=== PATIENT | male | born 1940 | race Caucasian/White ===

== ENCOUNTER 2017-10-23 12:20 | Emergency (ER) | payer OTHER, MEDICARE ==
[2017-10-23 12:53] VITALS: BP 150/94; PULSE 89; TEMP 98.2; BMI 26.3
[2017-10-23] MEDS ORDERED: IBUPROFEN 600 MG TABLET (FP) PO ONE ×2 (14:03→14:43)
--- NOTE | 2017-10-23 14:03 | PDOC ---
History of Present Illness - General Chief Complaint: Injury Stated Complaint: L ARM LACERATION Time Seen by Provider: 10/23/17 12:27 - History of Present Illness Initial Comments: 10/23/17 14:15 Mr Diamond is a 77 yo M who presents to the ER with a complaint of left forearm laceration. Patient states he was removing a tree limb on his property, and accidentally cut himself with a saw on the left forearm. Patient states his tetanus is current within the last 5 years. Patient denies loss of consciousness, falling, head trauma. Patient drove himself to the emergency department. Patient irrigated the area. PMH denies Past surgical history: Tonsillectomy as a child. Medication: Denies ALLERGIES: No known ALLERGIES Social: Denies alcohol, drug, cigarette use GENERAL/CONSTITUTIONAL: No: fever, chills CARDIOVASCULAR: No: chest pain, lightheadedness RESPIRATORY: No: cough, shortness of breath GASTROINTESTINAL: No: nausea, vomiting, abdominal pain MUSCULOSKELETAL: Yes: forearm laceration No: back pain, neck pain SKIN: Yes: forearm laceration NEUROLOGIC: No: paresthesias, weakness GENERAL: The patient is in no acute distress. HEAD: Normal with no signs of trauma. EYES: PERRLA, EOMI, sclera anicteric, conjunctiva clear. ENT: Ears normal, nares patent, oropharynx clear without exudates. Moist mucous membranes. NECK: Normal range of motion, supple without midline tenderness LUNGS: Breath sounds equal, clear to auscultation bilaterally. HEART:Regular rate and rhythm, normal S1 and S2 without murmur, rub or gallop. ABDOMEN: Soft, nontender, normoactive bowel sounds. EXTREMITIES: Normal range of motion NEUROLOGICAL: Cranial nerves II through XII grossly intact. Normal speech. No focal neurological deficits. MUSCULOSKELETAL: Back non-tender to palpation SKIN: Large deep laceration to the dorsum of the left forearm measures 6 cm Through skin and dermis muscule appears to be in tact Pt is able to range at the wrist, MCP, PIP, DIP with no limitations or weakness Sensation in tact No active bleeding Past History - Past Medical History Allergies/Adverse Reactions: Allergies Allergy/AdvReac Type Severity Reaction Status Date / Time No Known Allergies Allergy Verified 08/30/14 10:23 Home Medications: Ambulatory Orders Acetaminophen W/ Codeine #3 [Tylenol # 3 -] 1 tab PO BID PRN #5 tablet MDD 2 Cephalexin [Keflex] 250 mg PO Q6H #28 capsule 10/23/17 Sulfamethoxazole/Trimethoprim [Bactrim Ds -] 1 tab PO BID #14 tablet 10/23/17 COPD: No - Suicide/Smoking/Psychosocial Hx Smoking History: Never smoked Hx Alcohol Use: No Drug/Substance Use Hx: No Substance Use Type: None *Physical Exam - Vital Signs Last Vital Signs Temp Pulse Resp BP Pulse Ox 98.2 F 89 17 150/94 99 10/23/17 12:21 10/23/17 12:21 10/23/17 12:21 10/23/17 12:21 10/23/17 12:21 Medical Decision Making - Medical Decision Making 10/23/17 14:21 77-year-old [id number] male presented to emergency department status post deep laceration to the left forearm with a saw. Patient denies trauma to any other location. Deep laceration which does not appear to have injured flexor muscle bellies Pt will be seen by Dr. House in the ER for repair Pt tetanus up to date Clinical Impression: laceration, initial presentation 10/23/17 15:50 Xray demonstrates foreign body Pt seen and repaired by Dr House Clinical Impression: laceration, initial presentation Injury due to saw, initial presentation *DC/Admit/Observation/Transfer Diagnosis at time of Disposition: Laceration of forearm, left Qualifiers: Encounter type: initial encounter Qualified Code(s): S51.812A - Laceration without foreign body of left forearm, initial encounter - Discharge Dispostion Disposition: HOME Condition at time of disposition: Stable Admit: No - Prescriptions Prescriptions: Acetaminophen W/ Codeine #3 [Tylenol # 3 -] 1 tab PO BID PRN #5 tablet MDD 2 PRN Reason: Severe Pain Cephalexin [Keflex] 250 mg PO Q6H #28 capsule Sulfamethoxazole/Trimethoprim [Bactrim Ds -] 1 tab PO BID #14 tablet - Referrals Referrals: Samy Donnelly [Primary Care Provider] - Freddy House MD [Staff Physician] - - Patient Instructions Printed Discharge Instructions: DI for Laceration Repair -- Complex Additional Instructions: Mr Diamond Thanks for coming to the ER today I'm so sorry this happened 1. Suture Care for a normal sutured wound: o Don't get wet for 24 hours. o After 24 hours wash with alistair soap and water o Apply bacitracin or any antibiotic ointment after washing. o Change wound dressing when wet or soiled. o A dressing is no longer needed when edge of wound closed (usually 48 hours). EXCEPTION: dressing needed to prevent sutures from catching on clothing. 2. Removal Date: Guidelines for when particular sutures (stitches) should be removed IN 14 DAYS PLEASE MAKE AN APPOINTMENT FOR REMOVAL BY DR HOUSE IN 14 DAYS 3. Removal Delays: Do not miss your appointment for removing stitches. Stitches removed late can leave unnecessary skin greco and occasionally cause scarring. Delays also makes suture removal more difficult. 4. Suture Out Early: If the sutures come out early, call your primary care doctor or come back here for further assessment. 5. Wound Protection: After removal of sutures: o Protect the wound from injury during the following month. o Avoid sports that could re-injure the wound. If a sport is essential, apply tape before playing. o Allow the scab to fall off on its own. Do not try to remove it. 6. Call Your Doctor If: o Looks infected o Fever o Sutures come out early o You become worse - Post Discharge Activity
[2017-10-23] MEDS ORDERED: LIDOCAINE HCL 1%, 10 MG/ML (20ML VIAL) ONE (17:00)
--- NOTE | 2017-10-24 08:05 | OP ---
DATE OF OPERATION: 10/23/2017 ATTENDING SURGEON: Freddy House MD SWITCH CLEANER: There are no assistants. REFERRING PHYSICIAN: The patient said after request for a referring physician was Dr. aHyes. HISTORY: This is a 77-year-old man who suffered an injury from a carpentry saw to the left forearm. He was brought into the [facility] Emergency Room for evaluation and treatment. PAST MEDICAL AND SURGICAL HISTORY: Noncontributory. REVIEW OF SYSTEMS: Negative for any bleeding, coagulopathy, recent fevers or infections, changes in mental status, chest pain, shortness of breath. PHYSICAL EXAMINATION: Head and Neck: Atraumatic. Neck is supple and nontender. Extremities: Warm and well perfused. Neurovascular: Exam to the left hand is entirely intact. There is normal sensation to all distributions of the peripheral nerves. All tendons and muscles are entirely intact. Patient has all normal motor exam and sensory exam. Skin: Exploration of the wound shows an irregular, transverse lesion involving partially devitalized skin for roughly 8 cm. The patient was counseled on all risks, benefits, and alternatives to repair. He understands and agrees to proceed. PROCEDURE: Generous debridement of devitalized skin is required with scissors, 10-blade scalpel. This was entirely subcutaneous. The tissues were able to be mobilized towards one another after copious irrigation. Exploration is performed for a new metallic foreign body. This is not identified. Copious irrigation with over 1 L of normal saline is then performed. The fragment seen on the x-ray appears to be remote from the injury site and unrelated. However, thorough exploration is still performed yielding no foreign body. Closure of the wound is performed loosely leaving areas open for drainage. The closure is performed with a series of interrupted buried deep dermal 4-0 Vicryl suture followed by a running 4-0 nylon suture with several horizontal mattress elements. The wound is dressed with Bacitracin and Xeroform. Patient has been placed on antibiotics. Dressing is applied. Followup appointment is in 1 week. Jasmina [id number] cc: Dr. Hayes
== END 2017-10-23 17:56 | disposition home or self-care (01) ==
LOC: FER 12:20 → SUPCPDRO 12:20 → FER 17:56
PROC: 0JQH0ZZ Repair Left Lower Arm Subcutaneous Tissue and Fascia, Open Approach (ICD-10-PCS; principal; 2017-10-23)
DX: S51.812A Laceration without foreign body of left forearm, initial encounter (principal); W29.8XXA Contact with other powered hand tools and household machinery, initial encounter; Y93.89 Activity, other specified; Y92.410 Unspecified street and highway as the place of occurrence of the external cause
CPT/HCPCS: 12034; 73090-TC-LT-FY; 99282-25

== ENCOUNTER 2021-05-25 04:38 | Day surgery (SDC) | payer OTHER, MEDICARE ==
[2021-05-24 13:37] VITALS: BMI 25.8
[~2021-05-25 04:38] MED LIST: ACETAMINOPHEN 325 MG TABLET (FP) PO PRN
[2021-05-25] MEDS ORDERED: TROPICAMIDE 1% OPHTH SOLN 15 ML BOTTLE ONE (06:39)
[2021-05-25] MEDS ORDERED: CYCLOPENTOLATE HCL 1% OPHTH SOLN 2 ML BOTTLE ONE (06:39)
[2021-05-25] MEDS ORDERED: KETOROLAC TROMETHAMINE 0.5% EYE DROP 1 DROP DROPS ONE (06:39)
[2021-05-25] MEDS ORDERED: OFLOXACIN 0.3% OPHTHALMIC SOLUTION 5 ML BOTTLE ONE (06:39)
[2021-05-25] MEDS ORDERED: PHENYLEPHRINE 2.5% OPTHALMIC DROP BOTTLE ONE (06:40)
[2021-05-25] MEDS: PHENYLEPHRINE 2.5% OPHTH SOLN 15 ML BOTTLE OP SCH ×3 (07:00→07:10)
[2021-05-25] MEDS: CYCLOPENTOLATE HCL 1% OPHTH SOLN 2 ML BOTTLE OP SCH ×3 (07:00→07:10)
[2021-05-25] MEDS: OFLOXACIN 0.3% OPHTHALMIC SOLUTION 5 ML BOTTLE OP SCH ×3 (07:00→07:10)
[2021-05-25] MEDS: TROPICAMIDE 1% OPHTH SOLN 15 ML BOTTLE OP SCH ×3 (07:00→07:10)
[2021-05-25] MEDS: KETOROLAC TROMETHAMINE 0.5% EYE DROP 1 DROP DROPS OP SCH ×3 (07:00→07:10)
[2021-05-25] MEDS ORDERED: EPINEPHrine/PF 1 MG/1 ML (1:1,000) AMPULE ONE (07:13)
[2021-05-25] MEDS ORDERED: VANCOMYCIN 500 MG VIAL (RESTRICTED TO ID ONLY) ONE (07:13)
[2021-05-25] MEDS ORDERED: LIDOCAINE HCL/PF 1% SDV 5ML VIAL ONE (07:13)
[2021-05-25] MEDS ORDERED: TRYPAN BLUE 0.5 ML DISP.SYRIN ONE (07:14)
[2021-05-25] MEDS ORDERED: TETRACAINE 0.5% OPHTH SOLN 2 ML BOTTLE ONE (07:14)
[2021-05-25] MEDS ORDERED: WATER FOR INJ,STERILE 10 ML ONE (07:14)
[2021-05-25] MEDS ORDERED: POVIDONE-IODINE 5% OPHTHALMIC PREP 30 ML SOLUTION ONE (07:14)
[2021-05-25] MEDS ORDERED: SUCCINYLCHOLINE CHLORIDE 200 MG/10 ML SYRINGE ONE (08:02)
[2021-05-25] MEDS ORDERED: MIDAZOLAM HCL 2 MG/2 ML SINGLE DOSE VIAL ONE (08:02)
[2021-05-25] MEDS ORDERED: TETRACAINE 0.5% OPHTH SOLN 2 ML BOTTLE TP ONE (08:10)
[2021-05-25] MEDS ORDERED: LIDOCAINE HCL 1% PRESERVATIVE FREE - 30ML VIAL IO ONE (08:18)
[2021-05-25] MEDS ORDERED: CHONDROITIN SU A/HYALUR SOD 1 KIT IO ONE (08:19)
[2021-05-25] MEDS ORDERED: EPINEPHrine/PF 1 MG/1 ML (1:1,000) AMPULE SQ ONE (08:24)
[2021-05-25 11:44] VITALS: PULSE 50; TEMP 97.5
[2021-05-25 11:46] VITALS: BP 160/80
== END 2021-05-25 11:46 | disposition home or self-care (01) ==
LOC: JASU-SURG 04:38
PROVIDERS: ATTEND Ophthalmology
PROC: 08RK3JZ Replacement of Left Lens with Synthetic Substitute, Percutaneous Approach (ICD-10-PCS; principal; 2021-05-25 08:00)
DX: H26.9 Unspecified cataract (principal)

== ENCOUNTER 2021-06-08 04:21 | Day surgery (SDC) | payer OTHER, MEDICARE ==
[2021-06-06 08:39] VITALS: BMI 25.8
[~2021-06-08 04:21] MED LIST changes: +PHENYLEPHRINE 2.5% OPHTH SOLN 15 ML BOTTLE OP SCH
[2021-06-08] MEDS: PHENYLEPHRINE 2.5% OPTHALMIC DROP BOTTLE ONE ×3 (06:20→06:45)
[2021-06-08] MEDS: OFLOXACIN 0.3% OPHTHALMIC SOLUTION 5 ML BOTTLE OP SCH ×3 (06:20→06:45)
[2021-06-08] MEDS: KETOROLAC TROMETHAMINE 0.5% EYE DROP 1 DROP DROPS OP SCH ×3 (06:20→06:45)
[2021-06-08] MEDS: CYCLOPENTOLATE HCL 1% OPHTH SOLN 2 ML BOTTLE OP SCH ×3 (06:20→06:45)
[2021-06-08] MEDS: TROPICAMIDE 1% OPHTH SOLN 15 ML BOTTLE OP SCH ×3 (06:20→06:45)
[2021-06-08] MEDS ORDERED: OFLOXACIN 0.3% OPHTHALMIC SOLUTION 5 ML BOTTLE ONE (06:26)
[2021-06-08] MEDS ORDERED: KETOROLAC TROMETHAMINE 0.5% EYE DROP 1 DROP DROPS ONE (06:26)
[2021-06-08] MEDS ORDERED: CYCLOPENTOLATE HCL 1% OPHTH SOLN 2 ML BOTTLE ONE (06:26)
[2021-06-08] MEDS ORDERED: TROPICAMIDE 1% OPHTH SOLN 15 ML BOTTLE ONE (06:26)
[2021-06-08] MEDS ORDERED: SUCCINYLCHOLINE CHLORIDE 200 MG/10 ML SYRINGE ONE (07:14)
[2021-06-08] MEDS ORDERED: PROPOFOL 20 ML ONE (07:14)
[2021-06-08] MEDS ORDERED: MIDAZOLAM HCL 2 MG/2 ML SINGLE DOSE VIAL ONE (07:15)
[2021-06-08] MEDS ORDERED: LIDOCAINE HCL/PF 2% SDV 5ML VIAL ONE (07:15)
[2021-06-08] MEDS ORDERED: LIDOCAINE HCL/PF 1% SDV 5ML VIAL ONE (07:46)
[2021-06-08] MEDS ORDERED: ACETYLCHOLINE 1:100 INTRA-OCUL 20 MG/2 ML KIT ONE (07:48)
[2021-06-08] MEDS ORDERED: BSS (NA/CA/MG/K) BALANCED SALT SOLUTION OPHTH SOLN 15 ML BOTTLE ONE (07:48)
[2021-06-08] MEDS ORDERED: VANCOMYCIN 500 MG VIAL (RESTRICTED TO ID ONLY) ONE (07:48)
[2021-06-08] MEDS ORDERED: EPINEPHrine/PF 1 MG/1 ML (1:1,000) AMPULE ONE (07:48)
[2021-06-08] MEDS ORDERED: POVIDONE-IODINE 5% OPHTHALMIC PREP 30 ML SOLUTION ONE (07:49)
[2021-06-08] MEDS ORDERED: TRYPAN BLUE 0.5 ML DISP.SYRIN ONE (07:49)
[2021-06-08] MEDS ORDERED: WATER FOR INJ,STERILE 10 ML ONE (07:50)
[2021-06-08] MEDS ORDERED: TETRACAINE 0.5% OPHTH SOLN 2 ML BOTTLE ONE (07:50)
[2021-06-08] MEDS ORDERED: TETRACAINE 0.5% OPHTH SOLN 2 ML BOTTLE OD ONE (08:15)
[2021-06-08] MEDS ORDERED: POVIDONE-IODINE 5% OPHTHALMIC PREP 30 ML SOLUTION OD ONE (08:16)
[2021-06-08] MEDS ORDERED: LIDOCAINE HCL 1% PRESERVATIVE FREE - 30ML VIAL IO ONE (08:21)
[2021-06-08] MEDS ORDERED: BSS (NA/CA/MG/K) BALANCED SALT SOLUTION OPHTH SOLN 15 ML BOTTLE IO ONE (08:25)
[2021-06-08] MEDS ORDERED: CHONDROITIN SU A/HYALUR SOD 1 KIT IO ONE (08:27)
[2021-06-08] MEDS ORDERED: EPINEPHrine/PF 1 MG/1 ML (1:1,000) AMPULE IO ONE (08:30)
[2021-06-08] MEDS ORDERED: CHONDROITIN SU A/HYALUR SOD 1 KIT ONE (10:05)
[2021-06-08 10:49] VITALS: PULSE 56
[2021-06-08 11:07] VITALS: BP 120/70; TEMP 97.6
== END 2021-06-08 11:08 | disposition home or self-care (01) ==
LOC: JASU-SURG 04:21
PROVIDERS: ATTEND Ophthalmology
PROC: 08RJ3JZ Replacement of Right Lens with Synthetic Substitute, Percutaneous Approach (ICD-10-PCS; principal; 2021-06-08 08:00)
DX: H26.9 Unspecified cataract (principal)